=== PATIENT | female | born 1990 | race African-American/Black ===

== ENCOUNTER 2024-10-10 15:38 | Emergency (ER) | payer MEDICARE, SELFPAY ==
[2024-10-10 15:41] VITALS: BP 120/79
[2024-10-10 16:06] LABS: Hematocrit 35.0 % (37.0-47.0); Hemoglobin 11.3 g/dL (12.0-16.0); Mean Corp Hgb Conc. 32.3 g/dL (33.0-37.0); Mean Corpuscular Volume 82.2 fL (81.0-99.0); Nucleated Red Blood Cells % 0 %; Platelet Count 286 10^3/uL (130-400); Red Cell Dist. Width 16.5 % (11.5-14.5)
[2024-10-10 16:07] LABS: HCG, Serum Qualitative Screen Negative
[2024-10-10 16:12] LABS: ALT (SGPT) 19 U/L (0-35); AST (SGOT) 28 U/L (14-36); Albumin 3.8 g/dl (3.5-5.0); Alkaline Phosphatase 72 U/L (38-126); Blood Urea Nitrogen 8 mg/dl (7-17); Calcium 8.9 mg/dl (8.4-10.2); Carbon Dioxide 30 mmol/L (22-30); Chloride 105 mmol/L (98-107); Glucose 81 mg/dl (70-99); Potassium 3.1 mmol/L (3.5-5.1); Sodium 140 mmol/L (135-145); Total Protein 7.1 g/dl (6.3-8.2); eGFR > 60.00
[2024-10-10 17:31] VITALS: BP 133/96
[2024-10-10 17:32] VITALS: BMI 16.1
--- NOTE | 2024-10-10 18:16 | ED.GENMED ---
History of Present Illness
General
Chief Complaint: Withdrawal Symptoms
Source: patient and family
Time Seen by Provider: 10/10/24 17:35
History of Present Illness
History of Present Illness:
33-year-old female presents emergency department accompanied by her mother. She has a longstanding history of illicit drug use including fentanyl with xylazine approximately 1 bundle per day associated with crack cocaine which she smokes. She
injects fentanyl. She is seeking help to take steps towards recovery. She describes minimal withdrawal symptoms at this time. Her last use was approximately noon yesterday. She feels a little 'shaky' associated with diaphoresis rhinorrhea and
watery eyes. She denies nausea, vomiting, muscle cramps, chest pain, shortness of breath, abdominal pain. She has not had her menstrual period for months but is not sexually active.
Past History
Past History
ED Past Medical History: None
ED Past Surgical History:
Social History
Tobacco: Smoker
Alcohol: None
Drug: Cocaine and IVDA
Personal: Single
Living: homeless
Phy Exam
Physical Exam
Physical Exam:
GENERAL: Alert , in no apparent distress, thin
EYE: pupils equal and reactive
NECK: Supple, no significant adenopathy.
ENT: o/p clr, mmm, poor dentition.
CARDIAC: Regular rate and rhythm .
LUNGS: Clear breath sounds bilaterally, no acute respiratory distress, no wheezes/rales/rhonchi
ABDOMEN: Soft, without focal tenderness, no r/g, no cvat
NEUROLOGICAL: Alert and oriented, no focal neuro deficits
SKIN: Warm and dry, no diaphoresis or piloerection noted, skin intact. There are variety of wounds that are well-healed
MUSCULOSKELETAL: No edema, well perfused.
PSYCH: Normal and appropriate interaction.
Course
Orders/Labs/Results
Orders:
Orders
10/10/24 15:44
Urine Drug Abuse Screen Urgent
Date Specimen was Collected: 10/10/24
Time Specimen was Collected: 15:44
Test Result ONCE
10/10/24 15:50
Complete Blood Count/With Diff Urgent
Comprehensive Metabolic Panel Urgent
HCG, Serum Qualitative Screen Urgent
10/10/24 17:24
Crisis Consult Urgent
Reason for Consult: detox from heroin
10/10/24 17:56
Acetaminophen [Tylenol] 1,000 mg PO NOW STA
Buprenorphine HCl [Belbuca] 150 mcg BUCCAL NOW STA
Ketorolac [Toradol] 10 mg IM NOW STA
Ondansetron Orally Disint [Zofran Odt (Orally Disintegrating)] 4 mg PO NOW STA
Tizanidine [Zanaflex] 2 mg PO NOW STA
Abnormal Lab Results
10/10/24
15:50
WBC 11.9 H 10^3/uL
(4.8-10.8)
Hgb 11.3 L g/dL
(12.0-16.0)
Hct 35.0 L %
(37.0-47.0)
MCH 26.5 L pg
(27.0-31.0)
MCHC 32.3 L g/dL
(33.0-37.0)
RDW 16.5 H %
(11.5-14.5)
Absolute Lymphs (auto) 3.7 H 10^3/uL
(1.2-3.4)
Absolute Monos (auto) 1.5 H 10^3/uL
(0.1-0.6)
Monocytes % 12.3 H %
(1.7-9.3)
Potassium 3.1 L mmol/L
(3.5-5.1)
10/10/24 15:50
10/10/24 15:50
Vital Signs
Initial and Last Documented VS:
Initial Vital Signs
Temp Pulse Resp BP Pulse Ox
98.0 F 90 16 120/79 98
10/10/24 15:41 10/10/24 15:41 10/10/24 15:41 10/10/24 15:41 10/10/24 15:41
Last Documented Vital Signs
Temp Pulse Resp BP Pulse Ox
98.0 F 85 10 133/96 100
10/10/24 15:41 10/10/24 17:45 10/10/24 17:45 10/10/24 17:31 10/10/24 17:45
*Pulse Oximetry
SaO2: 100
Oxygen Mode of Delivery: Room air
Update Note
Update Note:
Patient presents to the Emergency Department with fentanyl crack cocaine use
Number and Complexity of Problems Addressed at the Encounter
� Chronic conditions affecting care:
� Acute Exacerbation and/or Progression of Chronic Illness:
� Differential Diagnosis includes: But not limited to impending withdrawal, infected wounds, sepsis, etc.
Amount and/or Complexity of Data to be Reviewed and Analyzed
� I performed an independent evaluation of and my interpretation is:
EKG:
CT:
Xrays:
Laboratory Studies:
Other:
� Review of other/old records reveals:
� Clinical information was obtained by an independent historian:
� Prescriptions/Medications Considered but not given:
� Further testing considered but not performed:
Risk of Complications and/or Morbidity or Mortality of Patient Management
� Social determinants of health affecting care:
� Discussion with other providers (PCP, Hospitalists, Consultants, etc):
� Escalation of care including admission/observation vs risk of discharge considered: Long discussion with patient regarding treatment options, she was agreeable to meeting with Leeann moreno to talk about steps to recovery tonight
while we help mitigate withdrawal symptoms including beginning micro dosing of buprenorphine. I left the room, called [facility], and ordered meds. Shortly thereafter I was alerted by the charge nurse that the patient had eloped from the emergency
department.
ED Attending Note
-
Portions of this chart may have been created with voice recognition software.� Occasional wrong word or��sound alike� substitutions may have occurred due to the inherent limitations of voice recognition software.
Discharge Plan
Departure
Patient Disposition: Elopement
Date of Disposition: 10/10/24
Time of Disposition: 18:19
Discharge Problem:
Opioid use disorder
Interventions
Interventions:
*Risk Screen - Suicide Last Done: 10/10/24 15:39
*General Assessment Last Done: 10/10/24 17:33
*Neglect/Abuse Screening Last Done: 10/10/24 17:33
*ED- Fall Risk Assessment Last Done: 10/10/24 17:33
*ED COVID-19 Vaccine History Last Done: 10/10/24 17:33
ED- Neurological Assessment Last Done: 10/10/24 17:53
ED-Psychological Assessment Last Done: 10/10/24 17:55
Discharge Date and Time
Print Language: CAMBODIAN
--- NOTE | 2024-10-10 18:39 | EDRN ---
AMA/Elopement: Patient voluntarily came to ED with mom for withdraw and detox from IV heroin/fentayl use. Patient's mom at bedside when patient admitted to ED. Patient verbalized to RN and ED Provider that she wants to stop needing to use IV
heroin/fentanly. [facility] notified and patient waiting for consults. While waiting for oral medication orders to begin detox, patient left ED without notifying ED staff. RN looked for patient in and outside of unit, but patient could be
found. Patient did not have a peripheral IV in place.
== END 2024-10-10 18:15 | disposition left against medical advice (07) ==
LOC: EMR 15:38
PROVIDERS: EMERGENCY PHYSICIAN Emergency Medicine
DX: F11.10 Opioid abuse, uncomplicated (principal); R61 Generalized hyperhidrosis; J34.89 Other specified disorders of nose and nasal sinuses; Z53.29 Procedure and treatment not carried out because of patient's decision for other reasons; F17.200 Nicotine dependence, unspecified, uncomplicated
CPT/HCPCS: 99282; 80053; 84703; 85025